=== PATIENT | female | born 1975 | race African-American/Black ===

== ENCOUNTER 2020-01-01 05:49 | Observation (INO) ==
[2020-01-01] MEDS ORDERED: Lactated Ringers 1000 ml BAG 1,000 ML IV SCH (06:00)
[2020-01-01] MEDS ORDERED: Buffered Lidocaine 1% SYRIN 1 ml INTRADERM ONE (06:00)
[2020-01-01] MEDS ORDERED: ceFOXitin 2 GM IVPREMIX 2 GM/50 ML BAG ONE (06:14)
[2020-01-01 06:48] LABS: ABS Basophils 0.1 10^3/ul (0-0.2); ABS Eosinophils 0.4 10^3/ul (0-0.6); ABS Lymphocytes 2.9 10^3/ul (1.0-4.8); ABS Monocytes 0.5 10^3/ul (0-0.8); ABS Neutrophils 4.1 10^3/ul (1.5-7.7); Eosinophil % 4.6 %; Hematocrit 40 % (35-47); Hemoglobin 13.3 g/dL (12.0-16.0); Lymphocyte % 36.9 %; Mean Corpuscular HGB Conc 34 g/dL (31-36); Mean Corpuscular Hemoglobin 30 pg (27-31); Mean Corpuscular Volume 88 fL (80-97); Mean Platelet Volume 8.8 fL (7.4-10.4); Nucleated Red Blood Cells % 0.1; Platelet Count 236 10^3/uL (150-450); Red Blood Count 4.51 10^6 /uL (3.70-4.87); Red Cell Distribution Width 15 % (10-15); White Blood Count 7.9 10^3/uL (3.5-10.8)
[2020-01-01] MEDS ORDERED: fentaNYL 250 mcg/5 ml 50 MCG/ML 5 ml VIAL (250 MCG) ONE (07:00)
[2020-01-01] MEDS ORDERED: Midazolam 2 mg/2 ml VIAL 1 mg/ml 2 ml VIAL (2 mg) ONE (07:00)
[2020-01-01] MEDS ORDERED: Rocuronium 50 mg VIAL 10 mg/ml 5 ml VIAL (50 mg) ONE ×2 (07:00→09:14)
[2020-01-01] MEDS ORDERED: Lidocaine 2% PF 5 ML VIAL ONE (07:02)
[2020-01-01] MEDS ORDERED: Propofol 10 MG/ML 20 ML BTL ONE (07:02)
[2020-01-01] MEDS ORDERED: Bupivacaine 0.25% SDV 30 ML ONE (07:18)
[2020-01-01] MEDS ORDERED: Levalbuterol HFA INHALER MDI ONE (07:43)
[2020-01-01] MEDS ORDERED: Dexamethasone IV 4 MG/ML VIAL 1 ml VIAL ONE (07:52)
[2020-01-01] MEDS ORDERED: HYDROmorphone 1 MG/1 ML SYRINGE IV PRN (08:09)
[2020-01-01] MEDS ORDERED: Ondansetron 4 mg VIAL 2 MG/ML 2 ml VIAL IV PRN (08:09)
[2020-01-01] MEDS ORDERED: fentaNYL 100 mcg/2 ml 50 MCG/ML VIAL IV PRN (08:09)
[2020-01-01] MEDS ORDERED: Naloxone 0.4 mg VIAL 0.4 mg/ml 1 ml VIAL IV PRN (08:09)
[2020-01-01] MEDS ORDERED: HYDROmorphone 1 MG/1 ML SYRINGE ONE (08:17)
[2020-01-01] MEDS ORDERED: Ondansetron 4 mg VIAL 2 MG/ML 2 ml VIAL ONE (09:50)
[2020-01-01] MEDS ORDERED: Albuterol HFA INHALER 8 gm MDI INH PRN (12:06)
[2020-01-01] MEDS: Lactated Ringers 1000 ml BAG 1,000 ML IV SCH ×2 (12:37→20:58)
[2020-01-01] MEDS: Mometasone/Formoter 200/5 MDI INH SCH (19:27)
[2020-01-02] MEDS: Lactated Ringers 1000 ml BAG 1,000 ML IV SCH (04:51)
[2020-01-02 07:21] VITALS: BP 91/53
[2020-01-02 07:36] LABS: ABS Basophils 0.1 10^3/ul (0-0.2); ABS Eosinophils 0.1 10^3/ul (0-0.6); ABS Lymphocytes 2.7 10^3/ul (1.0-4.8); ABS Monocytes 0.7 10^3/ul (0-0.8); ABS Neutrophils 7.9 10^3/ul (1.5-7.7); Eosinophil % 1.1 %; Hematocrit 32 % (35-47); Hemoglobin 10.7 g/dL (12.0-16.0); Lymphocyte % 23.6 %; Mean Corpuscular HGB Conc 34 g/dL (31-36); Mean Corpuscular Hemoglobin 30 pg (27-31); Mean Corpuscular Volume 88 fL (80-97); Mean Platelet Volume 8.7 fL (7.4-10.4); Platelet Count 174 10^3/uL (150-450); Red Blood Count 3.61 10^6 /uL (3.70-4.87); Red Cell Distribution Width 15 % (10-15); White Blood Count 11.4 10^3/uL (3.5-10.8)
[2020-01-02] MEDS: Mometasone/Formoter 200/5 MDI INH SCH (08:00)
== END 2020-01-02 11:31 | disposition home or self-care (01) ==
LOC: OR 05:49 → SSU 05:49
PROVIDERS: ADMIT Obstetrics & Gynecology; ATTEND Obstetrics & Gynecology